=== PATIENT | female | born 1980 | race Caucasian/White ===

== ENCOUNTER 2017-04-14 08:10 | Emergency (ER) | payer BC, OTHER ==
--- NOTE | 2017-04-14 08:21 | Emergency Department Record ---
History of Present Illness - General Chief Complaint: Back Pain/Injury Stated Complaint: BACK PAIN Time Seen by Provider: 04/14/17 08:21 Source: Patient - History of Present Illness Initial Comments: the patient states she has been doing her morning hour long workouts this week. 4 days ago, Sunday, she noticed her sciatica pain began. She continued her workouts in the morning, and noticed some discomfort. By she realized she shouldn't do the workouts due to increased pain. This morning the sciatica was on both sides with right greater than left, and radiating into her posterior thighs. She denies difficulty urinating, urinary retention, or bowel problems. She has a history of discectomy L4 and L5, with cauda equina syndrome in the past. She also has crohn's disease, tubal ligation, endometriosis, and has an IUD. She denies history of kidney stones, or urinary symptoms. MD Complaint: Back pain - Related Data Home Medications Medication Instructions Recorded Confirmed Last Taken Albuterol Sulfate [Proair Hfa] 2 puff INH ASDIR 04/14/17 04/14/17 Unknown Previous Rx's Medication Instructions Recorded Metaxalone [Skelaxin] 800 mg PO TID #15 tab 04/14/17 Tramadol HCl [Ultram] 50 mg PO Q8H #15 tab 04/14/17 Allergies Allergy/AdvReac Type Severity Reaction Status Date / Time No Known Drug Allergies Allergy Verified 04/14/17 08:14 Review of Systems Reviewed: No additional complaints except as noted below Constitutional: Reports: As per HPI. Denies: Chills, Fever, Malaise, Night sweats, Weakness, Weight change Eyes: Reports: As per HPI. Denies: Eye discharge, Eye pain, Photophobia, Vision change ENT: Reports: As per HPI. Denies: Congestion, Dental pain, Ear pain, Epistaxis , Hearing loss, Throat pain Respiratory: Reports: As per HPI. Denies: Cough, Dyspnea, Hemoptysis, Stridor, Wheezes Cardiovascular: Reports: As per HPI. Denies: Arrhythmia, Chest pain, Dyspnea on exertion, Edema, Murmurs, Orthopnea, Palpitations, Paroxysmal nocturnal dyspnea, Rheumatic Fever, Syncope Endocrine: Reports: As per HPI. Denies: Fatigue, Heat or cold intolerance, Polydipsia, Polyuria Gastrointestinal: Reports: As per HPI. Denies: Abdominal pain, Constipation, Diarrhea, Hematemesis, Hematochezia, Melena, Nausea, Vomiting Genitourinary: Reports: As per HPI. Denies: Abnormal menses, Discharge, Dyspareunia, Dysuria, Frequency, Hematuria, Incontinence, Retention, Urgency Musculoskeletal: Reports: As per HPI. Denies: Arthralgia, Back pain, Gout, Joint swelling, Myalgia, Neck pain Skin: Reports: As per HPI. Denies: Bruising, Change in color, Change in hair/ nails, Lesions, Pruritus, Rash Neurological: Reports: As per HPI. Denies: Abnormal gait, Confusion, Headache, Numbness, Paresthesias, Seizure, Tingling, Tremors, Vertigo, Weakness Psychiatric: Reports: As per HPI. Denies: Anxiety, Auditory hallucinations, Depression, Homicidal thoughts, Suicidal thoughts, Visual hallucinations Hematological/Lymphatic: Reports: As per HPI. Denies: Anemia, Blood Clots, Easy bleeding, Easy bruising, Swollen glands Past Medical History - SOCIAL HISTORY Smoking Status: Former smoker - RESPIRATORY Hx Respiratory Disorders: Yes Hx Asthma: Yes (exercise induced) - NEURO Hx Neuro Disorders: Yes Hx Weakness: Yes (old right foot drop) - GI Hx GI Disorders: Yes - Hx Genitourinary Disorders: No - MUSCULOSKELETAL Hx Back Injury: Yes (L4 L5 discs removed, cauda equina syndrome, ) Physical Exam - General General Appearance: Alert, Oriented x3, Cooperative, Moderate distress - Head Head exam: Normal inspection - Eye Eye exam: Normal appearance, PERRL Pupils: Normal accommodation - ENT ENT exam: Normal exam, Mucous membranes moist, Normal external ear exam, Normal orophraynx, TM's normal bilaterally Ear exam: Normal external inspection. negative: External canal tenderness Nasal Exam: Normal inspection. negative: Discharge, Sinus tenderness Mouth exam: Normal external inspection, Tongue normal Teeth exam: Normal inspection. negative: Dental caries Throat exam: Normal inspection. negative: Tonsillar erythema, Tonsillar exudate - Neck Neck exam: Normal inspection, Full ROM. negative: Tenderness - Respiratory Respiratory exam: Normal lung sounds bilaterally. negative: Respiratory distress - Cardiovascular Cardiovascular Exam: Regular rate, Normal rhythm, Normal heart sounds - GI/Abdominal GI/Abdominal exam: Soft, Normal bowel sounds. negative: Tenderness - Rectal Rectal exam: Deferred - exam: Deferred - Extremities Extremities exam: Normal inspection, Full ROM, Normal capillary refill. negative: Tenderness - Back Back exam: Reports: Normal inspection, Full ROM, Muscle spasm (sacral diffuse muscular tenderness; ), Paraspinal tenderness (bilateral SI joints tender on palpation, right greater than left). Denies: Rash noted, Tenderness - Neurological Neurological exam: Alert, CN II-XII intact, Normal gait, Oriented X3, Reflexes normal. negative: Motor sensory deficit - Psychiatric Psychiatric exam: Normal affect, Normal mood - Skin Skin exam: Dry, Intact, Normal color, Warm Course - Reevaluation(s) Reevaluation #1: Discussed with patient reasoning for NO XRAYS this morning with the understanding that if she does not improve, they may become indicated next week or later. Patient understands and agrees. 04/14/17 08:51 04/14/17 09:02 Medical Decision Making - Management Options MDM Management: No Additional Work-up Planned Disposition Disposition: Discharge Clinical Impression: Sciatica Qualifiers: Laterality: bilateral Qualified Code(s): M54.31 - Sciatica, right side; M54.32 - Sciatica, left side Disposition: Home, Self-Care Condition: (2) Stable Instructions: Low Back Strain (ED) Additional Instructions: No lifting bending twisting. Abstain from morning daily exercising until your back is pain free. Skelaxin as directed for muscle spasm. Ultram as directed for pain. Call PCP for recheck next week. Prescriptions: Metaxalone [Skelaxin] 800 mg PO TID #15 tab Tramadol HCl [Ultram] 50 mg PO Q8H #15 tab Quality - Quality Measures Quality Measures: N/A - Blood Pressure Screening Does Patient Have Any of the Following: No Blood Pressure Classification: Pre-Hypertensive BP Reading Systolic Measurement: 123 Diastolic Measurement: 62 Screening for High Blood Pressure: < Normal BP, F/U Not Required > [G8783]
[2017-04-14] MEDS ORDERED: KETOROLAC 30 MG/ML VIAL IM ONE (08:46)
[2017-04-14] MEDS ORDERED: ORPHENADRINE CITRATE 60MG/2ML VIAL IM ONE (08:46)
== END 2017-04-14 09:21 | disposition home or self-care (01) ==
LOC: ER 08:10
DX: M54.31 Sciatica, right side (principal); M54.32 Sciatica, left side
CPT/HCPCS: 99283 ×2; 96372; J1885; J2360